=== PATIENT | male | born 2000 | race Caucasian/White ===

== ENCOUNTER 2020-02-03 12:06 | Inpatient (IN) | payer MEDICAID ==
[~2020-02-03] VITALS: Ht 172.7 cm; Wt 77.1 kg
[2020-02-03 14:21] VITALS: BP 143/81
[2020-02-03 15:27] VITALS: BP 135/76
[2020-02-03 16:26] VITALS: BP 139/88
[2020-02-04 06:00] VITALS: BP 124/71
[2020-02-04 08:41] LABS: BASOPHILS % (AUTO) 0.4 % (0.0-2.0); EOSINOPHILS % (AUTO) 0.5 % (1.0-6.0); HEMATOCRIT 44.9 % (41-53); HEMOGLOBIN 15.9 g/dL (13.5-17.5); LYMPHOCYTES # (AUTO) 1.3 K/uL (1.0-4.8); LYMPHOCYTES % (AUTO) 16.8 % (22.0-44.0); MEAN CORPUSCULAR HEMOGLOBIN 33.5 pg (26.0-34.0); MEAN CORPUSCULAR HGB CONC 35.4 G/dL (31.0-37.0); MEAN CORPUSCULAR VOLUME 95 fL (80-100); MONOCYTES # (AUTO) 0.6 K/uL (0.1-1.0); MONOCYTES % (AUTO) 7.5 % (2.0-9.0); NEUTROPHILS # (AUTO) 5.8 K/uL (1.8-7.7); NEUTROPHILS % (AUTO) 74.8 % (40.0-70.0); PLATELET COUNT (AUTO) 231 K/uL (150-450); RED BLOOD CELL COUNT(AUTO) 4.75 MIL/uL (4.50-5.90); RED CELL DISTRIBUTION WIDTH 13.7 % (11.5-14.5)
[2020-02-04 08:49] VITALS: BP 149/87
[2020-02-04 09:09] LABS: ALANINE AMINOTRANSFERASE 24 U/L (12-78); ALBUMIN 4.8 g/dL (3.4-5.0); ALKALINE PHOSPHATASE 71 U/L (46-116); ANION GAP 14 mmol/L (8-16); ASPARTATE AMINOTRANSFERASE 25 U/L (15-37); BILIRUBIN,TOTAL 1.6 mg/dL (0.1-1.0); CALCIUM, TOTAL 9.5 mg/dL (8.8-10.5); CARBON DIOXIDE 24 mmol/L (22-29); CHLORIDE 97 mmol/L (98-107); CREATININE 0.86 mg/dL (0.60-1.30); GLOMERULAR FILTR. RATE CALC > 60 mL/min (>60); GLUCOSE,RANDOM 66 mg/dL (70-110); POTASSIUM 3.7 mmol/L (3.5-5.1); SODIUM SERUM 135 mmol/L (136-145); TOTAL PROTEIN, SERUM 8.5 g/dL (6.4-8.2); UREA NITROGEN, BLOOD 16 mg/dL (7-18)
[2020-02-04] MEDS: LORazepam 2 MG TABLET PO PRN ×2 (09:42→16:15)
[2020-02-04] MEDS: HALOPERIDOL 5 MG TABLET PO PRN ×2 (09:42→16:15)
[2020-02-04] MEDS: SERTRALINE HCL 50 MG TABLET PO SCH (13:19)
[2020-02-04 17:50] VITALS: BP 94/50
[2020-02-04] MEDS: ZOLPIDEM TARTRATE 10 MG TABLET PO PRN (21:09)
[2020-02-05] VITALS (8 sets, daily range): BP systolic 119–150; BP diastolic 71–95
[2020-02-05] MEDS: SERTRALINE HCL 50 MG TABLET PO SCH (08:45)
[2020-02-05] MEDS: LORazepam 2 MG TABLET PO PRN ×2 (08:46→14:19)
[2020-02-05] MEDS: ZOLPIDEM TARTRATE 10 MG TABLET PO PRN (20:33)
[2020-02-06 00:26] VITALS: BP 126/76
[2020-02-06 01:36] VITALS: BP 122/74
[2020-02-06 05:30] VITALS: BP 130/78
[2020-02-06] MEDS: LORazepam 2 MG TABLET PO PRN ×3 (08:23→21:17)
[2020-02-06] MEDS: SERTRALINE HCL 50 MG TABLET PO SCH (08:23)
[2020-02-06 10:52] VITALS: BP 123/83
[2020-02-06 14:18] VITALS: BP 123/96
[2020-02-06 19:17] VITALS: BP 131/82
[2020-02-06] MEDS: ZOLPIDEM TARTRATE 10 MG TABLET PO PRN (20:39)
[2020-02-06] MEDS: HALOPERIDOL 5 MG TABLET PO PRN (22:54)
[2020-02-07 00:25] VITALS: BP 126/89
[2020-02-07] MEDS ORDERED: SERT50TA12 PO (07:55)
[2020-02-07 08:49] VITALS: BP 124/74
[2020-02-07] MEDS: SERTRALINE HCL 50 MG TABLET PO SCH (09:06)
[2020-02-07] MEDS: LORazepam 2 MG TABLET PO PRN (09:06)
== END 2020-02-07 12:55 | disposition home or self-care (01) | DRG 751 ==
LOC: B3A 14:30 → B2S 02-05 16:15
PROVIDERS: ADMIT Psychiatry & Neurology Child & Adolescent Psychiatry; ATTEND Psychiatry & Neurology Child & Adolescent Psychiatry
DX: F33.2 Major depressive disorder, recurrent severe without psychotic features (principal); R45.851 Suicidal ideations; Z91.5 Personal history of self-harm; F10.20 Alcohol dependence, uncomplicated; F12.10 Cannabis abuse, uncomplicated; Z79.899 Other long term (current) drug therapy; Y90.6 Blood alcohol level of 120-199 mg/100 ml